=== PATIENT | female | born 1950 | race Caucasian/White ===

== ENCOUNTER 2022-03-28 18:05 | Inpatient (IN) | payer MEDICARE, OTHER, SELFPAY ==
[2022-03-28] VITALS (8 sets, daily range): BP systolic 124–185; BP diastolic 67–73; PULSE 65–90; RESP 12–20; TEMP 36.6; O2SAT 90–98
--- NOTE | ~2022-03-28 | CT_ITS ---
EXAMINATION: CT brain wo con INDICATION: Transient alteration of awareness COMPARISON: None TECHNIQUE: Standard unenhanced head CT. The dose-length product (DLP) was 681.00 mGy-cm. The mA was a djusted according to patient size. Iterative reconstruction technique was employed. FINDINGS: There is no acute intraparenchymal hemorrhage. No evidence of mass lesion. No evidence of a cute infarction. There is mild periventricular and subcortical hypodensity probably related to small vessel ischemic disease. There is mild prominence of the sulci and ventricles related to cerebral atr ophy. Intracranial calcified cerebral atherosclerosis is noted. There are no extra-axial collections. There is no mass effect or midline shift. Changes in the globes are likely from ocular lens surgery. There is mild mucosal thickening of the paranasal sinuses. IMPRESSION: 1. No acute intracranial abnormality. 2. Age related findings. Reviewed, dictated and finalized at location F.
--- NOTE | ~2022-03-28 | XR_ITS ---
EXAMINATION: XR chest 1V portable INDICATION: Shortness of breath and weakness TECHNIQUE: Portable AP chest at 1926 hours COMPARISON: None available FINDINGS: The lung volumes are low. There is no pleural effusion or pneumothorax. The lungs are free of acute opacities. The cardiomediastinal silhouette is normal. IMPRESSION: 1. No acute cardiopulmonary abnormality. Reviewed, dictated and finalized at location F.
--- NOTE | 2022-03-28 18:48 | ECG_ITS ---
Measurements Intervals [place] Rate: 73 P: 25 IA: 189 QRS: 82 QRSD: 76 T: -32 QT: 395 QTc: 436 Interpretive Statements SINUS RHYTHM NONSPECIFIC T-WAVE ABNORMALITY NO PREVIOUS ECG AVAILABLE FOR COMPARISON Electronically Signed On 03-29-2022 9:32:30 CDT by Gina Caballero M.D.
--- NOTE | 2022-03-28 18:48 | ED.AMS ---
HPI - Altered Mental Status General Chief Complaint: Altered Mental Status Stated Complaint: cellulitis Time Seen by Provider: 03/28/22 18:09 Source: patient, family and RN notes reviewed Mode of arrival: wheelchair Limitations: altered mental status History of Present Illness MD complaint: decreased responsiveness Onset (ago): hour(s) (3) Timing confirmed by: spouse Severity: moderate Consistency of symptoms: waxing and waning Context: other (pt took 2 morphine pills =30mg) Associated symptoms: denies other symptoms, malaise and difficulty walking Related Data Home Medications Medication Instructions Recorded Confirmed albuterol sulfate 90 mcg/actuation 4 puff inhalation PRN 03/28/22 03/28/22 aerosol inhaler (ProAir HFA) budesonide-formoterol HFA 80 2 puff inhalation HS 03/28/22 03/28/22 mcg-4.5 mcg/actuation aerosol inhaler (Symbicort) duloxetine 20 mg capsule,delayed 20 mg PO BID 03/28/22 03/28/22 release (Cymbalta) famotidine 40 mg tablet (Pepcid) 40 mg PO DAILY 03/28/22 03/28/22 insulin glargine 100 unit/mL (3 50 unit subcut BID 03/28/22 03/28/22 mL) subcutaneous pen (Lantus Solostar U-100 Insulin) levothyroxine 25 mcg tablet 25 mcg PO DAILY 03/28/22 03/28/22 (Synthroid) metformin 500 mg tablet,extended 500 mg PO DAILY 03/28/22 03/28/22 release 24hr mirabegron 50 mg tablet,extended 50 mg PO DAILY 03/28/22 03/28/22 release 24 hr (Myrbetriq) montelukast 10 mg tablet 10 mg PO DAILY 03/28/22 03/28/22 (Singulair) morphine 15 mg immediate release 15 mg PO Q6H PRN Pain 03/28/22 03/28/22 tablet morphine 15 mg tablet,extended 15 mg PO Q12H 03/28/22 03/28/22 release pregabalin 100 mg capsule (Lyrica) 100 mg PO TID 03/28/22 03/28/22 ropinirole 1 mg tablet 1 mg PO DIRECTED 03/28/22 03/28/22 rosuvastatin 10 mg tablet (Crestor) 10 mg PO DAILY 03/28/22 03/28/22 solifenacin 10 mg tablet (Vesicare) 10 mg PO DAILY 03/28/22 03/28/22 Allergies Allergy/AdvReac Type Severity Reaction Status Date / Time Cephalosporins Allergy Unknown Verified 03/28/22 18:35 meloxicam [From Mobic] Allergy Unknown Verified 03/28/22 18:35 Penicillins Allergy Unknown Verified 03/28/22 18:35 tetracycline Allergy Unknown Verified 03/28/22 18:35 Review of Systems Review of Systems: All systems reviewed & are unremarkable except as noted in HPI and below Constitutional: Constitutional: Reports no additional constitutional complaints Eyes: Eyes: Reports no additional eye complaints ENT: Reports system reviewed and no additional complaints, except as documented Cardiovascular: Cardiovascular: Reports no additional cardiovascular complaints Respiratory: Respiratory: Reports no additional respiratory complaints Gastrointestinal: Gastrointestinal: Reports no additional gastrointestinal complaints Genitourinary: Genitourinary: Reports no additional female genitourinary complaints Musculoskeletal: Musculoskeletal: Reports no additional musculoskeletal complaints Integumentary/Breasts: Skin/Breast: Reports system reviewed and no additional complaints, except as docu Neurologic: Reports system reviewed and no additional complaints, except as documented Psychiatric: Psychiatric: Reports no additional psychiatric complaints Endocrine: Endocrine: Reports no additional endocrine complaints Hematologic/Lymphatic: Hematologic/Lymphatic: Reports no additional hematologic/lymphatic complaints Allergic/Immunologic: Allergic/Immunologic: Reports no additional allergic/immunologic complaints PMFSH Past Medical History Medical History Morphine overdose Exam Const: General: healthy appearing and no acute distress Nutritional Appearance: well nourished Orientation/consciousness: patient oriented x3 Limitations: no limitations Other: Pt was very sleepy until IV Narcan was administered, when she awakened and became conversational. HENMT: Head: normal to inspe
[2022-03-28 19:17] LABS: Glucose Point of Care 197 mg/dl (65-105)
[2022-03-28 19:44] LABS: Base Excess ABG 4.5 mmol/L (0-2); Fractional Inspired Oxygen 21 %; HCO3 ABG 29.5 mmol/L (23-29); Oxygen Content ABG 19.5 %vol (16.0-22.0); Oxygen Saturation ABG 94.2 % (95-97); Oxyhemoglobin 91.1 % (94-100); PCO2 ABG 44.9 mmHg (35-45); PO2 FiO2 Ratio Arterial Blood 3.19 %; Total Hemoglobin 15.2 g/dL (12.0-18.0); pH ABG 7.44 (7.35-7.45)
[2022-03-28 19:45] LABS: Basophils Absolute Auto 0.14 K/mm3 (0.00-0.10); Basophils Percent Auto 1.7 % (0.0-1.0); Eosinophils Absolute Auto 0.32 K/mm3 (0.02-0.50); Hematocrit 43.2 % (35.0-42.0); Hemoglobin 14.3 g/dL (11.7-13.8); Immature Granulocyte Absolute 0.02 K/mm3 (0.00-0.00); Immature Granulocyte Percent A 0.2 % (0.0-0.0); Lymphocytes Absolute Auto 3.26 K/mm3 (1.10-4.50); Lymphocytes Percent Auto 40.6 % (18.0-42.0); Mean Corpuscular HGB Conc 33.1 g/dL (32.0-36.0); Mean Corpuscular Hemoglobin 29.2 pg (27.0-31.0); Mean Corpuscular Volume 88.3 fL (78.0-102.0); Mean Platelet Volume 10.3 fl (9.2-11.8); Monocytes Absolute Auto 0.64 K/mm3 (0.10-0.90); Neutrophils Absolute Auto 3.7 K/mm3 (1.7-7.2); Neutrophils Percent Auto 45.5 % (50.0-70.0); Platelet Count Result 191 K/mm3 (150-420); Red Blood Count 4.89 M/mm3 (4.20-5.40); Red Cell Distribution Width 13.7 % (11.6-14.4)
[2022-03-28 19:46] LABS: Device ROOM AIR; Modified Allen's Test Pass; Prothrombin Time 10.7 Seconds (9.50-12.10); Site Drawn LEFT RADIAL
--- NOTE | 2022-03-28 19:50 | PC.NURSE ---
RN assisted pt to CT with trading specialist. Pt was more alert and able to answer RN questions while moving pt to CT bed. Pt was returned to her room and returned to only responding to verbal stimulus.
[2022-03-28 20:03] LABS: Lactic Acid Reflex 0.9 mmol/L (0.4-2.0)
[2022-03-28] MEDS: SODIUM CHLORIDE 0.9% IV 1,000 ML 999 ML IV CONT (20:07)
[2022-03-28 20:12] LABS: Alanine Aminotransferase 26 U/L (14-59); Albumin Level 2.8 g/dL (3.4-5.0); Alkaline Phosphatase 157 U/L (46-116); Ammonia 25 umol/L (11-32); Anion Gap 4 mmol/L (8-16); Aspartate Amino Transferase 14 U/L (15-37); Bilirubin,Total 0.3 mg/dL (0.00-1.00); Blood Urea Nitrogen 13 mg/dL (7-18); Calcium 8.5 mg/dL (8.5-10.1); Carbon Dioxide 31 mmol/L (21-32); Chloride 101 mmol/L (98-108); Estimated CRCL calculation 44 ml/min; Estimated Glomerular Filt Rate 45; Glucose 206 mg/dL (70-99); Osmolality Calculated 288 mOsm/kg (285-295); Potassium 3.8 mmol/L (3.5-5.1); Salicylate 2.4 mg/dL (2.8-20.0); Sodium 136 mmol/L (136-145); Thyroid Stimulating Hormone 2.55 uIU/mL (0.36-3.74); Total Protein 7.4 g/dL (6.4-8.2); Troponin I 11.2 ng/L (0.00-60.4)
[2022-03-28 20:15] LABS: Acetaminophen 0 ug/mL (10-30)
[2022-03-28 20:16] LABS: Ethanol < 3 mg/dL (0-6)
--- NOTE | 2022-03-28 20:41 | PC.NURSE ---
[facility], but was told nothing was available and to call [facility] Connect. RN called [facility] and line and was told a hospitalist will be returning a call.
--- NOTE | 2022-03-28 20:50 | PC.NURSE ---
After talking to [facility], ERP ordered a indwelling Owens catheter. RN confirmed and read order back to ERP.
--- NOTE | 2022-03-28 21:02 | PC.NURSE ---
While reapplying reapplying SPO2 monitor pt became responsive and asked for RN to raise the back of the bed. When asked how she is feeling, pt responds with an arm shrug. Pt states she is not in any pain and just wants to be sitting in a more comfortable position. Pt was repositioned and started to become more alert.
[2022-03-28] MEDS: NALOXONE HCL 0.4 MG/ML VIAL IV PUSH ×2 (21:28→22:48)
[2022-03-28 21:30] LABS: Add Urine Microscopic? YES; Appearance Urine Clear (Clear); Bilirubin Urine Negative (Negative); Blood Urine Negative (Negative); Color Urine Yellow (Yellow); Glucose Urine UA 2+ (Negative); Ketones Urine Negative (Negative); Leukocyte Esterase Ur Negative LEU/UL (Negative); Nitrate Urine Negative (Negative); Protein Urine Negative (Negative); Urobilinogen Urine 0.2 mg/dL (0.2-1.0)
[2022-03-28 21:35] LABS: Bacteria Urine Trace /hpf; RBC Urine 0-2 /hpf (0-2); Squamous Epithelial Cell Urine Rare /hpf (Few); WBC Urine 0-3 /hpf (0-3)
[2022-03-28 21:37] LABS: Amphetamine Screen Urine Negative (Negative); Barbiturate Screen Urine Negative (Negative); Benzodiazepines Screen Urine Negative (Negative); Cannabinoid Screen Urine Negative (Negative); Cocaine Screen Urine Negative (Negative); Methadone Screen Urine Negative (Negative); Opiate Screen Urine Positive (Negative); Phencyclidine Screen Urine Negative (Negative)
[2022-03-28 21:48] LABS: SARS-CoV-2 Ag Negative (Negative)
--- NOTE | 2022-03-28 21:48 | PC.NURSE ---
Pt c/o discomfort from her catheter. RN Anastasia pulled the indwelling catheter without issues.
--- NOTE | 2022-03-28 23:27 | PC.NURSE ---
Pt states after calling [facility] in [facility] he is unable to find a room in the area and needs to stay with his . Upstairs charge entry specialist alerted and states a couch will be in pt's room.
[2022-03-29] VITALS: BP 178/60; PULSE 72; RESP 13; TEMP 36.4; O2SAT 90
[2022-03-29 00:15] VITALS: PULSE 96; RESP 18; O2SAT 96
--- NOTE | 2022-03-29 00:32 | PC.NURSE ---
Spoke with Get Morales NP, regarding orders; New orders received and noted.
[2022-03-29 00:40] VITALS: BMI 40.5
[2022-03-29 05:14] LABS: Basophils Absolute Auto 0.09 K/mm3 (0.00-0.10); Basophils Percent Auto 1.1 % (0.0-1.0); Eosinophils Percent Auto 2.4 % (1.0-6.0); Hematocrit 41.7 % (35.0-42.0); Hemoglobin 13.8 g/dL (11.7-13.8); Immature Granulocyte Absolute 0.04 K/mm3 (0.00-0.00); Immature Granulocyte Percent A 0.5 % (0.0-0.0); Lymphocytes Absolute Auto 2.37 K/mm3 (1.10-4.50); Lymphocytes Percent Auto 28.6 % (18.0-42.0); Mean Corpuscular HGB Conc 33.1 g/dL (32.0-36.0); Mean Corpuscular Hemoglobin 28.9 pg (27.0-31.0); Mean Corpuscular Volume 87.4 fL (78.0-102.0); Mean Platelet Volume 9.8 fl (9.2-11.8); Monocytes Absolute Auto 0.66 K/mm3 (0.10-0.90); Neutrophils Absolute Auto 4.9 K/mm3 (1.7-7.2); Neutrophils Percent Auto 59.4 % (50.0-70.0); Platelet Count Result 165 K/mm3 (150-420); Red Blood Count 4.77 M/mm3 (4.20-5.40); Red Cell Distribution Width 13.4 % (11.6-14.4); White Blood Count 8.3 K/mm3 (4.8-10.8)
[2022-03-29 05:30] LABS: Alanine Aminotransferase 14 U/L (14-59); Albumin Level 2.4 g/dL (3.4-5.0); Alkaline Phosphatase 131 U/L (46-116); Anion Gap 3 mmol/L (8-16); Aspartate Amino Transferase 12 U/L (15-37); Bilirubin,Total 0.3 mg/dL (0.00-1.00); Blood Urea Nitrogen 12 mg/dL (7-18); Calcium 8.1 mg/dL (8.5-10.1); Carbon Dioxide 31 mmol/L (21-32); Chloride 104 mmol/L (98-108); Estimated CRCL calculation 49 ml/min; Estimated Glomerular Filt Rate 51; Glucose 216 mg/dL (70-99); Osmolality Calculated 292 mOsm/kg (285-295); Potassium 3.8 mmol/L (3.5-5.1); Sodium 138 mmol/L (136-145); Total Protein 6.5 g/dL (6.4-8.2)
[2022-03-29] MEDS: LEVOTHYROXINE SODIUM 25 MCG TABLET PO (07:10)
[2022-03-29 08:00] VITALS: BP 178/71; PULSE 68; RESP 16; TEMP 36.5; O2SAT 94
[2022-03-29 08:01] LABS: Glucose Point of Care 176 mg/dl (65-105)
--- NOTE | 2022-03-29 08:06 | PC.NURSE ---
Pt fasting Blood sugar is 176.
--- NOTE | 2022-03-29 08:56 | PM.SD2 ---
Same Day Admit/Disch: HPI History of Present Illness Chief complaint: cellulitis Narrative: Nancy Galindo is a 71 year old female that presented to our emergency department with complaints of unresponsiveness. Patient has a past medical history of COPD, diabetes, hypothyroidism, chronic pain, restless leg syndrome, anxiety and depression, and incontinence. According to patient and her they have been traveling since the beginning of February. They are originally from [place]. Patient notes that last week she notify her primary care physician that she has cellulitis. Her primary care physician instructed her to go to the nearest emergency department due to her history of cellulitis. Patient notes that she went to an emergency department in [place] and was prescribed clindamycin for her bilateral lower extremity cellulitis. Patient notes that her cellulitis has much improved since the use of clindamycin. According to her while traveling yesterday he was unable to wake patient up. Patient does take morphine. Patient notes that she did not take an overdose. According to her she has had several episodes where was hard for her to arouse. According to ER notes she was given Narcantwice and became arousable. 178/71, 68, 16, 97.7, 94% on room air, WBCs 8.3, hemoglobin 13.8, hematocrit 41.7, platelets 165, sodium 138, potassium 3.8, BUN 12, creatinine 1.06, glucose 216, lactic acid 0.9, total bili 0.3, AST 12, ALT 14, troponin 11.2, TSH 2.55, UA positive for glucose, toxicology positive for opiates, CT of the chest and head unremarkable EKG sinus rhythm with a heart rate in the 70s. Today patient is alert and orientated x3. Patient does deny taking an overdose of morphine, according to she has had a history of being lethargic and unresponsive. notes that eventually she does wake up. The patient denies SOB, CP, palpitation, extremity numbness, lightheadedness, dizziness, constipation, diarrhea, chills, or fever. Patient will follow up with her primary care physician in [facility] Past Medical History Medical History (Updated 03/29/22 @ 09:14 by MARK Dent) Chronic pain COPD (chronic obstructive pulmonary disease) Depression with anxiety Diabetes HLD (hyperlipidemia) Hypertension Incontinence Morphine overdose Restless leg syndrome Social History Social History Smoking packs per day: 1 Smoking cigarettes per day: 20.0 Years smoked: 50 Smoking pack-years: 50.00 Smoking status: Current every day smoker Tobacco type: cigarettes Alcohol intake: never Substance use: current Substance use type: opiates Spiritual care concerns: No Same Day Admit/Disch: Med Pre-admit Medications Home Medications Medication Instructions Recorded Confirmed Type albuterol sulfate 90 mcg/actuation 4 puff inhalation PRN 03/28/22 03/28/22 History aerosol inhaler (ProAir HFA) budesonide-formoterol HFA 80 2 puff inhalation HS 03/28/22 03/28/22 History mcg-4.5 mcg/actuation aerosol inhaler (Symbicort) duloxetine 20 mg capsule,delayed 20 mg PO BID 03/28/22 03/28/22 History release (Cymbalta) famotidine 40 mg tablet (Pepcid) 40 mg PO DAILY 03/28/22 03/28/22 History insulin glargine 100 unit/mL (3 50 unit subcut BID 03/28/22 03/28/22 History mL) subcutaneous pen (Lantus Solostar U-100 Insulin) levothyroxine 25 mcg tablet 25 mcg PO DAILY 03/28/22 03/28/22 History (Synthroid) metformin 500 mg tablet,extended 500 mg PO DAILY 03/28/22 03/28/22 History release 24hr montelukast 10 mg tablet 10 mg PO DAILY 03/28/22 03/28/22 History (Singulair) morphine 15 mg immediate release 15 mg PO Q6H PRN Pain 03/28/22 03/28/22 History tablet morphine 15 mg tablet,extended 15 mg PO Q12H 03/28/22 03/28/22 History release pregabalin 100 mg capsule (Lyrica) 100 mg PO TID 03/28/22 03/28/22 History ropinirole 1
[2022-03-29] MEDS: FAMOTIDINE 20 MG TABLET 40 MG PO (09:09)
[2022-03-29] MEDS: MIRABEGRON 25 MG ER TABLET 50 MG PO (09:09)
[2022-03-29] MEDS: MONTELUKAST SODIUM 10 MG TABLET PO (09:09)
[2022-03-29] MEDS: metFORMIN HCL XR 500 MG TAB.SR.24H PO (09:10)
[2022-03-29] MEDS: PREGABALIN (*CRX) 100 MG CAPSULE PO (09:10)
[2022-03-29] MEDS: DULoxetine HCL 20 MG CAPSULE.DR PO (09:11)
[2022-03-29] MEDS: ROSUVASTATIN 10 MG TABLET PO (09:11)
[2022-03-29] MEDS: INSULIN GLARGINE (*BKC) 100 UNITS/ML 50 UNITS SUB-Q (09:14)
--- NOTE | 2022-03-29 12:08 | PC.NURSE ---
Pt discharged to spouses care with [facility]. Pt denies pain at this time.
--- NOTE | 2022-04-01 10:04 | PC.NURSE ---
Unable to contact for discharge call back.
== END 2022-03-29 10:45 | disposition home or self-care (01) | DRG 918 ==
LOC: CHSED 18:16 → CHS2ND 03-29 00:16
PROVIDERS: Admitting Provider Internal Medicine; Emergency Provider Emergency Medicine; Visit Provider Emergency Medicine
DX: T40.2X1A Poisoning by other opioids, accidental (unintentional), initial encounter (principal); Z20.822 Contact with and (suspected) exposure to COVID-19; Z79.899 Other long term (current) drug therapy; L03.115 Cellulitis of right lower limb; L03.116 Cellulitis of left lower limb; J44.9 Chronic obstructive pulmonary disease, unspecified; I10 Essential (primary) hypertension; E11.9 Type 2 diabetes mellitus without complications; E03.9 Hypothyroidism, unspecified; G25.81 Restless legs syndrome; G89.29 Other chronic pain; F41.9 Anxiety disorder, unspecified; F32.A Depression, unspecified; F17.210 Nicotine dependence, cigarettes, uncomplicated
CPT/HCPCS: 36415; 36600; 70450; 71045; 80053; 80307; 81001; 82140; 82805; 82948; 83605; 84443; 84484; 85025; 85610; 85730; 87426; 93005; 96361; 96374; 96376; 99285; A9270; C9803; J1815; J2310; J7030